=== PATIENT | female | born 1995 | race Caucasian/White ===

== ENCOUNTER 2019-06-20 18:49 | Inpatient (IN) | payer MEDICAID, OTHER ==
[~2019-06-20] VITALS: Ht 144.8 cm; Wt 65.8 kg
[2019-06-20 18:55] VITALS: Ht 144.8 cm; Wt 65.8 kg
[2019-06-20] MEDS ORDERED: ACETAMINOPHEN 325 MG TAB PO PRN (22:30)
[2019-06-20] MEDS ORDERED: AL HYDROX/MG HYDROX/SIMETH 30 ML CUP PO PRN (22:30)
[2019-06-20] MEDS ORDERED: LACTATED RINGER'S 1,000 ML IV ONE (22:30)
[2019-06-20] MEDS: LACTATED RINGER'S 1,000 ML IV SCH (23:45)
[2019-06-21] MEDS: LACTATED RINGER'S 1,000 ML IV SCH ×2 (01:34→08:48)
[2019-06-21] MEDS ORDERED: TERBUTALINE 1 MG/ML INJ SC ONE (02:00)
[2019-06-21] MEDS: BETAMET NA PHOS/AC (6 MG/ML) 2 ML INJ SYG IM SCH ×2 (02:24→14:36)
[2019-06-21] MEDS ORDERED: PRENATAL VITAMIN PO SCH (09:00)
[2019-06-21] MEDS ORDERED: FERROUS SULFATE (EC) 325 MG TAB PO SCH (09:00)
== END 2019-06-21 15:00 | disposition home or self-care (01) | DRG 923 ==
LOC: OBT 18:49 → L-D 18:50 → OBT 22:03 → L-D 22:03
PROVIDERS: ADMIT Obstetrics & Gynecology; ATTEND Obstetrics & Gynecology
DX: Z04.3 Encounter for examination and observation following other accident (principal); O99.820 Streptococcus B carrier state complicating pregnancy; Z3A.35 35 weeks gestation of pregnancy
CPT/HCPCS: 76818; 80053; 81001; 85025; 85049; 85460; 85610; 85670; 85730; 86850; 86900; 86901; G0463; J0702; J3105; J7120